=== PATIENT | female | born 1925 | race Caucasian/White ===

== ENCOUNTER 2017-01-20 19:40 | Emergency (ER) | payer MEDICARE, OTHER ==
[2017-01-20 20:35] LABS: BASOPHILS % 0.4 (0.0-1.5); EOSINOPHILS % 0.4 % (0.0-6.8); MEAN CORPUSCULAR HEMOGLOBIN 33.4 pg (28.0-34.0); MEAN CORPUSCULAR VOLUME 96.3 fl (80.0-100.0); MONOCYTES % 3.2 % (0.0-11.0); NEUTROPHILS # 4.8 # k/uL (1.4-7.7)
[2017-01-20 20:49] LABS: eGFR (African) > 60; eGFR (Non-African) > 60
--- NOTE | 2017-01-20 20:49 | ED Physician Documentation ---
Neuro Symptoms - HISTORIAN Historian: patient - HPI Stated Complaint: BLURRY VISION Chief Complaint: Neurological Deficits Onset: hours ([id number]) Last known Well Date: 01/20/17 Last Known Well Time: 15:00 Last known Well Code/Unknown Code: Known Further Comments: yes (89 year old female patient brought in by daughter with complaints of "double vision", "I can't see right". Patient reports symptoms started between [id number]. Patient had epidural injection at Dr Connell's office today between 1300 -1500. Family contacted Dr Connell who advised Er evaluation.) - CHARACTERS OF DEFICIT New Weakness: none Altered Sensation: none Vision Problems: Yes (loss of left peripheral vision) Impaired Speech/ Swallowing: No Decreased Ability: none Cognition is Usually: alert, oriented x3 Gait is Usually: walks w/o assistance Associated Symptoms: headache, other (pain behind her eyes) - ROS MENTAL STATUS: problems with vision CVS/Resp Upper Extremity Problem: none GI/ DYSPNEA: none MS/SKIN/LYMPH: none Neuro/Psych: none - PAST HX Past History: other (HLD, Fibromyalgia, polymyalgia rheumatica, OA, ) Other History: hypertension Allergies/Adverse Reactions: Allergies Allergy/AdvReac Type Severity Reaction Status Date / Time No Known Allergies Allergy Verified 01/20/17 20:17 Home Medications: Ambulatory Orders Medication Instructions Recorded Cyclobenzaprine HCl 10 mg D 07/28/14 Gabapentin [Gabapentin] 600 mg TID 07/28/14 Hydrocodone/Acetaminophen 1 each D 07/28/14 [Hydrocodon-Acetaminophen 5-500] Lisinopril [Lisinopril] 20 mg TID 07/28/14 Tramadol HCl [Tramadol HCl] 50 mg PRN PRN 07/28/14 DULoxetine HCL [Cymbalta] 30 mg D 01/20/17 Memantine HCl [Namenda] 10 mg D 01/20/17 Pramipexole Di-HCl [Mirapex] 0.125 mg D 01/20/17 - FAMILY HX Family History: denies: none - SOCIAL HX Smoking History: non-smoker - VITAL SIGNS Vital Signs: Vital Signs Temp Pulse Resp BP Pulse Ox 97.8 F 102 H 20 196/80 94 01/20/17 20:00 01/20/17 21:04 01/20/17 20:00 01/20/17 20:00 01/20/17 21:04 - REVIEWED ASSESSMENTS Nursing Assessment Reviewed: Yes Vitals Reviewed: Yes Progress - Progress Progress: Family updated on lab and CT, recommended stat consult with neurologist. 2054 Call to [facility], case discussed with powerhouse oiler, requested physician consult. Stroke vs giant cell arteritis. 2109 Call from [facility] at [facility], patient accepted by Dr Henderson. Will transfer for CTA, MRI tonight. No orders for solumedrol. ED Results Lab/Radiology - Lab Results Lab Results: Lab Results 01/20/17 01/20/17 01/20/17 20:29 20:29 20:29 WBC RBC Hgb Hct MCV MCH MCHC RDW Plt Count Neut % (Auto) Lymph % (Auto) Citrus % (Auto) Eos % (Auto) Baso % (Auto) Neut # (Auto) Lymph # (Auto) Citrus # (Auto) Eos # (Auto) Baso # (Auto) Reactive Lymphs % Reactive Lymphs # PT 11.1 Seconds Seconds (9.4-11.6) INR 1.06 (0.9-1.2) APTT 26.1 Seconds Seconds (24.5-32.8) Sodium 141 mmol/L mmol/L (136-145) Potassium 4.0 mmol/L mmol/L (3.5-5.0) Carbon Dioxide 28 mmol/L mmol/L (20-32) BUN 16 mg/dL mg/dL (10-26) Creatinine 0.8 mg/dL mg/dL (0.4-1.5) Estimated Creat Clear 54 Est GFR ( Amer) > 60 (60 - ) Est GFR (Non-Af Amer) > 60 (60 - ) Glucose 187 mg/dL H mg/dL (70-99) Calcium 10.3 mg/dL mg/dL (8.5-10.5) Total Bilirubin 0.4 mg/dL mg/dL (0.2-1.2) AST 25 U/L U/L (0-41) ALT 19 U/L U/L (0-45) Alkaline Phosphatase 72 U/L U/L (46-116) Troponin I < 0.03 ng/mL L ng/mL (0.03-0.06) Total Protein 7.7 g/dL g/dL (6.0-8.5) Albumin 4.8 g/dL g/dL (3.0-5.5) 01/20/17 20:29 WBC 5.60 K/ul K/ul (4.00-12.00) RBC 4.01 M/ul M/ul (3.90-5.20) Hgb 13.4 g/dL g/dL (12.0-16.0) Hct 38.6 % % (34.5-46.5) MCV 96.3 fl fl (80.0-100.0) MCH 33.4 pg pg (28.0-34.0) MCHC 34.7 g/dL g/dL (30.0-36.0) RDW 14.0 % % (11.3-14.3) Plt Count 145 K/mm3 K/mm3 (130-400) Neut % (Auto) 85.6 % H % (39.0-79.0) Lymph % (Auto) 8.8 % L % (16.0-50.0) Citrus % (Auto) 3.2 % % (0.0-11.0) Eos % (Auto) 0.4 % % (0.0-6.8) Baso % (Auto) 0.4 (0.0-1.5) Neut # (Auto) 4.8 # k/uL # k/uL (1.4-7.7) Lymph # (Auto) 0.5 # k/uL L # k/uL (0.6-4.0) Citrus # (Auto) 0.2 # k/uL # k/uL (0.0-0.9) Eos # (Auto) 0.0 # k/uL # k/uL (0.0-0.6) Baso # (Auto) 0.0 # k/uL # k/uL (0.0-0.5) Reactive Lymphs % 1.5 % % (0.0-5.0) Reactive Lymphs # 0.1 # k/uL # k/uL (0.0-0.8) PT INR APTT Sodium Potassium Carbon Dioxide BUN Creatinine Estimated Creat Clear Est GFR ( Amer) Est GFR (Non-Af Amer) Glucose Calcium Total Bilirubin AST ALT Alkaline Phosphatase Troponin I Total Protein Albumin - Radiology Radiology Impressions: Examination: CT head without contrast History: Loss of vision Comparison exam: 21 February 2014 Technique: Noncontrast head CT protocol. Findings: Ventricles and sulci are prominent, though consistent for patient age. Cerebrocerebellar parenchyma demonstrates periventricular low attenuation consistent with small vessel disease. No evidence for parenchymal hemorrhage. No evidence for mass or mass effect. No midline shift. No extra axial fluid collections. Partial visualization of the paranasal sinuses, mastoid air cells, orbits, skull and scalp without gross regularity. Impression: Advanced age related changes. No acute parenchymal process. No hemorrhage. Electronically signed on Jan 20, 2017 8:31:34 PM CDT by: Trevon Seth - Orders Orders: ED Orders Category Date Time Status Continuous EKG monitoring Q30M Care 01/20/17 20:04 Active Continuous Pulse Oximetry Q30M Care 01/20/17 20:[address] IV Lock 1T Care 01/20/17 20:[address] BRAIN W/O CONTRAST Stat Exams 01/20/17 Ordered CBC/PLATELET/DIFF Stat Lab 01/20/17 20:29 Completed CMP Stat Lab 01/20/17 20:29 Completed PT-INR Stat Lab 01/20/17 20:29 Completed PTT Stat Lab 01/20/17 20:29 Completed SEDIMENTATION RATE (ESR) Stat Lab 01/20/17 20:47 Received TROPONIN I (cTnI) Stat Lab 01/20/17 20:29 Completed UA W/MICRO IF INDICATED Stat Lab 01/20/17 20:04 Ordered 0.9 % Sodium Chloride [Normal Saline] 1,000 ml Med 01/20/17 21:16 Discontinued IV .STK-MED 0.9 % Sodium Chloride [Normal Saline] 1,000 ml Med 01/20/17 21:16 Ordered IV NOW Oxygen Daily Oxygen 01/20/17 20:15 Ordered Neuro Symptoms Physical Exam - Physical Exam General Appearance: mild distress HEENT: no apparent trauma, EOM's intact, unequal pupils (right irregular - history of eye surgery; left 2mm reactive), other (loss of left peripheral vision and left visual field at midline. ) Neuro/Psych: alert, oriented x3, no evidence of acute CVA, mood/affect nml, eyes open Cranial Nerves: nml as tested Pheripheral Exam: motor nml, sensation nml Neck: normal inspection, thyroid normal Respiratory: no resp distress, chest non-tender, breath sounds normal, other ( RA sat 88%, place on 3L NC) CVS: reg rate & rhythm, heart sounds normal, equal pulses, no murmur, no gallop , PMI nml, no JVD, no friction rub, 24 Abdomen: non-tender, no distention, no organomegaly Skin: no rash, pallor, nml palp., dry Extremities: non-tender, normal range of motion, no evidence of injury, no edema , J, [employer] Discharge Clincal Impression: Acute visual loss Qualifiers: Laterality: left Qualified Code(s): H53.132 - Sudden visual loss, left eye Referrals: Mila Wagner, PRN [Primary Care Provider] - 2 Days Home Medications: Ambulatory Orders Cyclobenzaprine HCl 10 mg D 07/28/14 Gabapentin [Gabapentin] 600 mg TID 07/28/14 Hydrocodone/Acetaminophen [Hydrocodon-Acetaminophen 5-500] 1 each D 07/28/14 Lisinopril [Lisinopril] 20 mg TID 07/28/14 Tramadol HCl [Tramadol HCl] 50 mg PRN PRN 07/28/14 DULoxetine HCL [Cymbalta] 30 mg D 01/20/17 Memantine HCl [Namenda] 10 mg D 01/20/17 Pramipexole Di-HCl [Mirapex] 0.125 mg D 01/20/17 Condition: Serious Disposition: 02 XFER SHT-TRM HOSP Decision to Admit: NO Decision Time: 21:23
[2017-01-20] MEDS ORDERED: 0.9 % SODIUM CHLORIDE 1,000 ML IV ONE (21:16)
[2017-01-20] MEDS: 0.9 % SODIUM CHLORIDE 1,000 ML IV ONE (21:28)
[2017-01-20 21:32] VITALS: BP 169/78
--- NOTE | 2017-01-21 05:55 | Diagnostic Imaging Report ---
YONI HARRIS (ELENA) - ER~ [facility] [id number] [facility] [address] [place] [address]. [id number] ~ ~ ~ ~ Report Submission Date: Jan 20, 2017 8:31:34 PM CDT Patient ~ Study Name: VERENICE SEGURA ~ Date: Jan 20, 2017 8:12:46 PM CDT ~ Modality Type: CT\SR Gender: F ~ Description: CT BRAIN W/O CONTRAST : [birth year] ~ Institution: [facility] Physician: YONI HARRIS) - ENIO ~ ~ ~ ~ Examination: CT head without contrast History:~ Loss of vision Comparison exam: 21 February 2014 Technique: Noncontrast head CT protocol. Findings: Ventricles and sulci are prominent, though consistent for patient age. Cerebrocerebellar parenchyma demonstrates periventricular low attenuation consistent with small vessel disease. No evidence for parenchymal hemorrhage. No evidence for mass or mass effect. No midline shift. No extra axial fluid collections. Partial visualization of the paranasal sinuses, mastoid air cells, orbits, skull and scalp without gross regularity. Impression: Advanced age related changes. No acute parenchymal process. No hemorrhage. ~ Electronically signed on Jan 20, 2017 8:31:34 PM CDT by: Trevon JEFFRIES
== END 2017-01-20 21:20 | disposition short-term general hospital (02) ==
LOC: ED 19:40
DX: H53.132 Sudden visual loss, left eye (principal)
CPT/HCPCS: 70450; 80053; 84484; 85025; 85610; 85651; 85730; 96360; 99284; J7030; S1016

== ENCOUNTER 2017-01-23 13:35 | Inpatient (IN) | payer MEDICARE, OTHER ==
[2017-01-23 16:28] VITALS: BMI 22.8
--- NOTE | 2017-01-23 18:23 | History and Physical Report ---
History of Present Illnes - History of Present Illness Reason for Visit: TIA History of Present Illness: Sirisha is an 89 year old female admitted from [facility] after having a sudden loss of vision in the right eye. She had had steroid injections in the lumbar spine on Thursday by Dr. Connell and on the way home, lost vision in her right eye. She came back to the hospital and was admitted on Thursday evening under the care of Dr. Connell. MRIs there did not demonstrate any evidence of a new stroke, and her vision has returned. She has some continued ataxia and is admitted to our facility for skilled stay with a view toward returning to her home after discharge. Her daughter Hilda is her primary caregiver and gives her close support. She usually sees Rachana Wagner for her care. - Past Medical History Cardiac: HTN. denies: CAD HAT IRONER: Peripheral neuropathy Musculoskeletal: Chronic low back pain, Osteoarthritis Rheumatologic: Fibromyalgia ENT: Allergic rhinitis - Past Surgical History Past Surgical History: Arthroscopy, Other (Carpel Tunnel surgery) - Past Social History Smoke: No Occupation: Retired Alcohol: None Drugs: None Lives: Alone (with close support from daughter Hilda) Domestic Violence: Negative - Health Maintenance Health Maintenance: Cholesterol Influenza Vaccine: Current for this Influenza Season Pneumonia Vaccine: Yes Resuscitation Status: Resusciation Status Resuscitation Status Do Not Resuscitate Review of Systems - Review of Systems Constitutional: negative: Fever, Chills Eyes: vision change ENT: negative: Ear Pain, Ear Discharge Respiratory: Shortness of Breath (improved). negative: Cough, Dry Cardiovascular: negative: Chest Pain Gastrointestinal: negative: Nausea, Vomiting Genitourinary: negative: Dysuria, Frequency Musculoskeletal: negative: Neck Pain, Shoulder Pain Skin: negative: Rash, Lesions Neurological: Weakness - Medications/Allergies Allergies/Adverse Reactions: Allergies Allergy/AdvReac Type Severity Reaction Status Date / Time No Known Allergies Allergy Verified 01/20/17 20:17 Home Medications: Home Medications Aspirin [Adult Low Dose Aspirin EC] 81 mg PO DAILY 01/23/17 Hydrochlorothiazide [Hydrochlorothiazide] 12.5 mg PO DAILY 01/23/17 Lisinopril [Zestril] 10 mg PO HS 01/23/17 Lovastatin [Mevacor] 10 mg PO HS 01/23/17 Exam - Exam Vital Signs: Vital Signs (72 hours) 01/20/17 01/23/17 21:20 13:57 Temperature 99.5 F Pulse Rate [ 114 H Right] Respiratory 20 Rate Blood Pressure 169/78 Blood Pressure 169/78 139/85 [Right Arm] O2 Sat by Pulse 94 Oximetry General: Alert, Oriented to Person, Oriented to Place, Oriented to Time HEENT: Atraumatic, PERRLA, EOMI Neck: No: Stridor, Rigidity Lungs: Clear to auscultation, Normal air movement, Wheezes (scant) Cardiovascular: Regular rate, Normal S1, Normal S2 Murmur: No: Systolic Murmur Abdomen: Normal bowel sounds, Soft, No tenderness, No hepatospenomegaly Genitourinary: No: Right Inguinal Hernia, Left Inguinal Hernia Male Genitourinary: No: Other Female Genitourinary: No: Other Integumentary: Normal, Ophiem, Warm Extremities: No clubbing, No cyanosis Neurological: Normal speech Psych/Mental Status: Mental status NL (mild cognitive slowing) Assessment/Plan - Assessment/Plan (1) Fibromyalgia Status: Acute Current Visit: Yes Assessment: Chronic (2) Ataxia Status: Acute Current Visit: Yes Assessment: Improved after TIA Plan: PT/OT (3) Hypertension Status: Acute Current Visit: Yes Qualifiers: Hypertension type: essential hypertension Qualified Code(s): I10 - Essential (primary) hypertension Assessment: Well controlled Plan: Continue HCTZ and lisinopril (4) Dementia Status: Acute Current Visit: Yes Assessment: Continue Memantine VTE Assessment - RISK FACTOR SCORE VTE RISK FACTOR SCORES: AGE OVER 60 YEARS, ANTICIPATED BED CONFINEMENT OR IMMOBILIZATION > 24 HOURS - RISK VTE MODERATE RISK: SCORE OF 2 (RISK PROXIMAL DVT 2-4%) PROPHYAXIS NEEDED ( Started Lovenox/TONY hose)
[2017-01-23] MEDS ORDERED: LORATADINE/PSEUDOEPHEDRINE 1 EACH TAB.ER.12H PO ONE (18:33)
[2017-01-23] MEDS: ENOXAPARIN SODIUM 30 MG/0.3 ML DISP.SYRIN SQ SCH (19:03)
[2017-01-23] MEDS: DULoxetine HCL 30 MG CAPSULE.DR PO SCH (20:15)
[2017-01-23] MEDS: SIMVASTATIN 20 MG TABLET PO SCH (20:16)
[2017-01-24] MEDS: MEMANTINE HCL 10 MG TABLET PO SCH (08:58)
[2017-01-24] MEDS: CYCLOBENZAPRINE HCL 5 MG TABLET PO SCH (08:58)
[2017-01-24] MEDS: GABAPENTIN 300 MG CAPSULE PO SCH ×3 (08:58→18:29)
[2017-01-24] MEDS ORDERED: HYDROCHLOROTHIAZIDE 25 MG TABLET PO SCH (09:00)
[2017-01-24] MEDS: LISINOPRIL 5 MG TABLET PO SCH (10:06)
[2017-01-24] MEDS: PRAMIPEXOLE 0.125 MG PO SCH (10:06)
[2017-01-24] MEDS ORDERED: traMADol HCL 50 MG TABLET PO PRN (12:30)
[2017-01-24] MEDS: HYDROcodone /APAP 5/325 1 EACH TABLET PO SCH ×2 (14:00→21:07)
[2017-01-24] MEDS: ENOXAPARIN SODIUM 30 MG/0.3 ML DISP.SYRIN SQ SCH (18:30)
[2017-01-24] MEDS: SIMVASTATIN 20 MG TABLET PO SCH (21:02)
[2017-01-24] MEDS: DULoxetine HCL 30 MG CAPSULE.DR PO SCH (21:03)
[2017-01-25] MEDS: HYDROcodone /APAP 5/325 1 EACH TABLET PO SCH ×3 (06:23→20:08)
[2017-01-25] MEDS: GABAPENTIN 300 MG CAPSULE PO SCH ×3 (09:11→18:27)
[2017-01-25] MEDS: CYCLOBENZAPRINE HCL 5 MG TABLET PO SCH (09:11)
[2017-01-25] MEDS: MEMANTINE HCL 10 MG TABLET PO SCH (09:11)
[2017-01-25] MEDS: LISINOPRIL 5 MG TABLET PO SCH (09:12)
[2017-01-25] MEDS: PRAMIPEXOLE 0.125 MG PO SCH (09:16)
[2017-01-25] MEDS: ENOXAPARIN SODIUM 30 MG/0.3 ML DISP.SYRIN SQ SCH (18:27)
[2017-01-25] MEDS: SIMVASTATIN 20 MG TABLET PO SCH (20:08)
[2017-01-25] MEDS: DULoxetine HCL 30 MG CAPSULE.DR PO SCH (20:08)
[2017-01-26] MEDS: HYDROcodone /APAP 5/325 1 EACH TABLET PO SCH ×3 (06:36→20:00)
--- NOTE | 2017-01-26 08:46 | Inpatient Progress Note ---
Subjective - Required Recertification Statement I anticipate X number of days because-include discharge plan: 5 - Review of Systems Events since last encounter: Sirisha is doing well. She is ready to work with therapy today. She is eating well. She denies any pain. She says that she feels well. Her visual deficits have not returned. The Kpad is helping with her back pain. General: Denies: Chills HEENT: Denies: Head Aches Pulmonary: Denies: Dyspnea Cardiovascular: Denies: Chest Pain Gastrointestinal: Denies: Nausea Genitourinary: Denies: Dysuria Musculoskeletal: Back Pain (improved with Kpad) Neurological: Weakness. Denies: Confusion Objective - Exam Vitals and I&O: Vital Signs Temp 98.6 F 01/25/17 20:13 Pulse 96 H 01/25/17 20:13 Resp 20 01/25/17 20:41 BP 122/54 01/25/17 20:13 Pulse Ox 92 01/25/17 20:13 Intake & Output 01/25/17 01/25/17 01/26/17 11:59 23:59 11:59 Intake Total 360 860 Balance 360 860 Weight 146 kg 66.224 kg Intake: Oral 360 860 Other: Voiding Method Toilet Toilet # Voids 2 3 1 General: Alert, Oriented to Person, Oriented to Place, Oriented to Time, Cooperative HEENT: Atraumatic, PERRLA, EOMI Neck: Supple, No JVD Lungs: Clear to auscultation, Normal air movement Cardiovascular: Regular rate Abdomen: Normal bowel sounds, Soft, No tenderness Extremities: No clubbing, No cyanosis, No edema Skin: Normal, Angus Neurological: Normal speech Psych/Mental Status: Mental status NL Assessment/Plan - Assessment/Plan (1) Fibromyalgia Status: Acute Current Visit: Yes Assessment: Chronic, stable Plan: Continue current pain medications (2) Ataxia Status: Acute Current Visit: Yes Assessment: PT/OT to work with today (3) Hypertension Status: Acute Current Visit: Yes Qualifiers: Hypertension type: essential hypertension Qualified Code(s): I10 - Essential (primary) hypertension Assessment: Well controlled (4) Dementia Status: Acute Current Visit: Yes Assessment: Chronic/stable
[2017-01-26] MEDS: CYCLOBENZAPRINE HCL 5 MG TABLET PO SCH (10:08)
[2017-01-26] MEDS: MEMANTINE HCL 10 MG TABLET PO SCH (10:08)
[2017-01-26] MEDS: GABAPENTIN 300 MG CAPSULE PO SCH ×3 (10:08→17:51)
[2017-01-26] MEDS: PRAMIPEXOLE 0.125 MG PO SCH (10:09)
[2017-01-26] MEDS: LISINOPRIL 20 MG TABLET PO SCH (10:12)
[2017-01-26 10:45] LABS: MEAN CORPUSCULAR HEMOGLOBIN 32.6 pg (28.0-34.0)
[2017-01-26 11:03] LABS: eGFR (African) > 60; eGFR (Non-African) > 60
[2017-01-26] MEDS: ENOXAPARIN SODIUM 30 MG/0.3 ML DISP.SYRIN SQ SCH (17:51)
[2017-01-26] MEDS: DULoxetine HCL 30 MG CAPSULE.DR PO SCH (19:59)
[2017-01-26] MEDS: SIMVASTATIN 20 MG TABLET PO SCH (19:59)
[2017-01-27] MEDS: HYDROcodone /APAP 5/325 1 EACH TABLET PO SCH ×3 (05:31→20:29)
[2017-01-27] MEDS: GABAPENTIN 300 MG CAPSULE PO SCH ×3 (08:40→18:05)
[2017-01-27] MEDS: CYCLOBENZAPRINE HCL 5 MG TABLET PO SCH (08:41)
[2017-01-27] MEDS: MEMANTINE HCL 10 MG TABLET PO SCH (08:41)
[2017-01-27] MEDS: PRAMIPEXOLE 0.125 MG PO SCH (08:41)
[2017-01-27] MEDS: LISINOPRIL 20 MG TABLET PO SCH (08:42)
[2017-01-27] MEDS: ENOXAPARIN SODIUM 30 MG/0.3 ML DISP.SYRIN SQ SCH (18:05)
[2017-01-27] MEDS: DULoxetine HCL 30 MG CAPSULE.DR PO SCH (20:29)
[2017-01-27] MEDS: SIMVASTATIN 20 MG TABLET PO SCH (20:29)
[2017-01-28] MEDS: HYDROcodone /APAP 5/325 1 EACH TABLET PO SCH ×3 (06:13→20:40)
[2017-01-28] MEDS: CYCLOBENZAPRINE HCL 5 MG TABLET PO SCH (08:32)
[2017-01-28] MEDS: MEMANTINE HCL 10 MG TABLET PO SCH (08:33)
[2017-01-28] MEDS: GABAPENTIN 300 MG CAPSULE PO SCH ×3 (08:33→18:25)
[2017-01-28] MEDS: PRAMIPEXOLE 0.125 MG PO SCH (08:36)
[2017-01-28] MEDS: LISINOPRIL 20 MG TABLET PO SCH (08:39)
[2017-01-28] MEDS: POLYETHYLENE GLYCOL 3350 17 GM POWD.PACK PO SCH (11:10)
[2017-01-28] MEDS: ENOXAPARIN SODIUM 30 MG/0.3 ML DISP.SYRIN SQ SCH (18:26)
[2017-01-28] MEDS: DULoxetine HCL 30 MG CAPSULE.DR PO SCH (20:37)
[2017-01-28] MEDS: SIMVASTATIN 20 MG TABLET PO SCH (20:38)
[2017-01-29] MEDS: HYDROcodone /APAP 5/325 1 EACH TABLET PO SCH ×3 (06:05→21:09)
[2017-01-29] MEDS: LISINOPRIL 20 MG TABLET PO SCH (10:20)
[2017-01-29] MEDS: GABAPENTIN 300 MG CAPSULE PO SCH ×3 (10:21→18:00)
[2017-01-29] MEDS: CYCLOBENZAPRINE HCL 5 MG TABLET PO SCH (10:22)
[2017-01-29] MEDS: MEMANTINE HCL 10 MG TABLET PO SCH (10:22)
[2017-01-29] MEDS: POLYETHYLENE GLYCOL 3350 17 GM POWD.PACK PO SCH (10:34)
[2017-01-29] MEDS: PRAMIPEXOLE 0.125 MG PO SCH (10:35)
[2017-01-29] MEDS ORDERED: FUROSEMIDE 40 MG/4 ML VIAL ONE (15:06)
[2017-01-29] MEDS ORDERED: SALINE FLUSH 10 ML DISP.SYRIN IVF ONE (15:07)
[2017-01-29] MEDS: ENOXAPARIN SODIUM 30 MG/0.3 ML DISP.SYRIN SQ SCH (18:04)
[2017-01-29] MEDS: DULoxetine HCL 30 MG CAPSULE.DR PO SCH (21:06)
[2017-01-29] MEDS: SIMVASTATIN 20 MG TABLET PO SCH (21:06)
[2017-01-30] MEDS: HYDROcodone /APAP 5/325 1 EACH TABLET PO SCH ×3 (06:26→19:59)
[2017-01-30] MEDS: MEMANTINE HCL 10 MG TABLET PO SCH (09:46)
[2017-01-30] MEDS: GABAPENTIN 300 MG CAPSULE PO SCH ×3 (09:46→18:11)
[2017-01-30] MEDS: LISINOPRIL 20 MG TABLET PO SCH (09:47)
[2017-01-30] MEDS: PRAMIPEXOLE 0.125 MG PO SCH (09:48)
[2017-01-30] MEDS: CYCLOBENZAPRINE HCL 5 MG TABLET PO SCH (09:51)
[2017-01-30] MEDS: POLYETHYLENE GLYCOL 3350 17 GM POWD.PACK PO SCH (10:40)
[2017-01-30] MEDS: ENOXAPARIN SODIUM 30 MG/0.3 ML DISP.SYRIN SQ SCH (18:11)
[2017-01-30] MEDS: SIMVASTATIN 20 MG TABLET PO SCH (19:58)
[2017-01-30] MEDS: DULoxetine HCL 30 MG CAPSULE.DR PO SCH (19:58)
[2017-01-31] MEDS: HYDROcodone /APAP 5/325 1 EACH TABLET PO SCH ×3 (06:11→21:22)
[2017-01-31] MEDS: CYCLOBENZAPRINE HCL 5 MG TABLET PO SCH (08:42)
[2017-01-31] MEDS: PRAMIPEXOLE 0.125 MG PO SCH (08:43)
[2017-01-31] MEDS: MEMANTINE HCL 10 MG TABLET PO SCH (08:43)
[2017-01-31] MEDS: GABAPENTIN 300 MG CAPSULE PO SCH ×3 (08:43→18:32)
[2017-01-31] MEDS: LISINOPRIL 20 MG TABLET PO SCH (08:45)
[2017-01-31] MEDS: POLYETHYLENE GLYCOL 3350 17 GM POWD.PACK PO SCH (12:34)
[2017-01-31] MEDS: LORATADINE/PSEUDOEPHEDRINE 1 EACH TAB.ER.12H PO PRN (13:25)
[2017-01-31] MEDS: ENOXAPARIN SODIUM 30 MG/0.3 ML DISP.SYRIN SQ SCH (18:33)
[2017-01-31] MEDS: DULoxetine HCL 30 MG CAPSULE.DR PO SCH (21:21)
[2017-01-31] MEDS: SIMVASTATIN 20 MG TABLET PO SCH (21:21)
[2017-02-01] MEDS: HYDROcodone /APAP 5/325 1 EACH TABLET PO SCH ×3 (06:33→20:40)
[2017-02-01] MEDS: MEMANTINE HCL 10 MG TABLET PO SCH (08:19)
[2017-02-01] MEDS: CYCLOBENZAPRINE HCL 5 MG TABLET PO SCH (08:19)
[2017-02-01] MEDS: GABAPENTIN 300 MG CAPSULE PO SCH ×3 (08:19→17:55)
[2017-02-01] MEDS: LISINOPRIL 20 MG TABLET PO SCH (08:21)
[2017-02-01] MEDS: PRAMIPEXOLE 0.125 MG PO SCH (08:24)
[2017-02-01] MEDS: POLYETHYLENE GLYCOL 3350 17 GM POWD.PACK PO SCH (11:55)
[2017-02-01] MEDS: ENOXAPARIN SODIUM 30 MG/0.3 ML DISP.SYRIN SQ SCH (20:39)
[2017-02-01] MEDS: DULoxetine HCL 30 MG CAPSULE.DR PO SCH (20:39)
[2017-02-01] MEDS: SIMVASTATIN 20 MG TABLET PO SCH (20:40)
--- NOTE | 2017-02-01 22:01 | Inpatient Progress Note ---
Subjective - Required Recertification Statement I anticipate X number of days because-include discharge plan: 3 - Review of Systems Events since last encounter: Sirisha continues to improved. She has not had any further loss of vision. I believe that the plan is for her to discharge to home on Thursday of this week. She is eating well and participating in therapy. General: Denies: Chills HEENT: Denies: Head Aches Pulmonary: Denies: Dyspnea Cardiovascular: Denies: Chest Pain Gastrointestinal: Denies: Nausea Genitourinary: Denies: Dysuria Musculoskeletal: Denies: Neck Pain Neurological: Denies: Weakness Objective - Exam Vitals and I&O: Vital Signs Temp 98.6 F 02/01/17 21:00 Pulse 91 H 02/01/17 21:00 Resp 16 02/01/17 21:00 BP 127/68 02/01/17 21:00 Pulse Ox 91 L 02/01/17 21:00 Intake & Output 01/31/17 02/01/17 02/01/17 23:59 11:59 23:59 Intake Total 780 600 840 Balance 780 600 840 Weight 67.132 kg Intake: Oral 780 600 840 Other: Voiding Method Toilet Toilet # Voids 2 2 2 General: Alert, Oriented to Person HEENT: Atraumatic Neck: Supple, No JVD Lungs: Clear to auscultation Cardiovascular: Regular rate Abdomen: Normal bowel sounds Extremities: No clubbing, No cyanosis, No edema Skin: Normal Neurological: Normal gait Psych/Mental Status: Mental status NL (baseline deficits in memory are noted) - Results Results: Laboratory Results WBC 11.91 K/ul (4.00-12.00) 01/26/17 10:25 RBC 4.10 M/ul (3.90-5.20) 01/26/17 10:25 Hgb 13.4 g/dL (12.0-16.0) 01/26/17 10:25 Hct 39.8 % (34.5-46.5) 01/26/17 10:25 MCV 97.0 fl (80.0-100.0) 01/26/17 10:25 MCH 32.6 pg (28.0-34.0) 01/26/17 10:25 MCHC 33.6 g/dL (30.0-36.0) 01/26/17 10:25 RDW 14.1 % (11.3-14.3) 01/26/17 10:25 Plt Count 276 K/mm3 (130-400) 01/26/17 10:25 Sodium 140 mmol/L (136-145) 01/26/17 10:25 Potassium 4.6 mmol/L (3.5-5.0) 01/26/17 10:25 Chloride 106 mmol/L (98-110) 01/26/17 10:25 Carbon Dioxide 30 mmol/L (20-32) 01/26/17 10:25 BUN 58 mg/dL (10-26) H 01/26/17 10:25 Creatinine 1.0 mg/dL (0.4-1.5) 01/26/17 10:25 Estimated Creat Clear 46 01/26/17 10:25 Est GFR ( Amer) > 60 (60-) 01/26/17 10:25 Est GFR (Non-Af Amer) > 60 (60-) 01/26/17 10:25 Glucose 134 mg/dL (70-99) H 01/26/17 10:25 Calcium 10.1 mg/dL (8.5-10.5) 01/26/17 10:25 Total Bilirubin 0.3 mg/dL (0.2-1.2) 01/26/17 10:25 AST 15 U/L (0-41) 01/26/17 10:25 ALT 15 U/L (0-45) 01/26/17 10:25 Alkaline Phosphatase 65 U/L (46-116) 01/26/17 10:25 Total Protein 7.6 g/dL (6.0-8.5) 01/26/17 10:25 Albumin 4.8 g/dL (3.0-5.5) 01/26/17 10:25 Assessment/Plan - Assessment/Plan (1) Fibromyalgia Status: Acute Current Visit: Yes Assessment: Chronic, stable (2) Ataxia Status: Acute Current Visit: Yes Assessment: Continue PT/OT (3) Hypertension Status: Acute Current Visit: Yes Qualifiers: Hypertension type: essential hypertension Qualified Code(s): I10 - Essential (primary) hypertension Assessment: Well controlled (4) Dementia Status: Acute Current Visit: Yes Qualifiers: Dementia type: unspecified type Dementia behavioral disturbance: without behavioral disturbance Qualified Code(s): F03.90 - Unspecified dementia without behavioral disturbance
[2017-02-02] MEDS: HYDROcodone /APAP 5/325 1 EACH TABLET PO SCH ×3 (06:05→20:13)
[2017-02-02] MEDS: LISINOPRIL 20 MG TABLET PO SCH (07:59)
[2017-02-02] MEDS: MEMANTINE HCL 10 MG TABLET PO SCH (07:59)
[2017-02-02] MEDS: GABAPENTIN 300 MG CAPSULE PO SCH ×3 (07:59→18:37)
[2017-02-02] MEDS: CYCLOBENZAPRINE HCL 5 MG TABLET PO SCH (07:59)
[2017-02-02] MEDS: PRAMIPEXOLE 0.125 MG PO SCH (08:00)
[2017-02-02] MEDS: LORATADINE/PSEUDOEPHEDRINE 1 EACH TAB.ER.12H PO PRN (08:04)
[2017-02-02] MEDS: POLYETHYLENE GLYCOL 3350 17 GM POWD.PACK PO SCH (12:31)
[2017-02-02] MEDS: ENOXAPARIN SODIUM 30 MG/0.3 ML DISP.SYRIN SQ SCH (18:37)
[2017-02-02] MEDS: DULoxetine HCL 30 MG CAPSULE.DR PO SCH (20:12)
[2017-02-02] MEDS: SIMVASTATIN 20 MG TABLET PO SCH (20:12)
[2017-02-03] MEDS: HYDROcodone /APAP 5/325 1 EACH TABLET PO SCH ×3 (06:17→20:00)
[2017-02-03] MEDS: GABAPENTIN 300 MG CAPSULE PO SCH ×3 (09:33→18:23)
[2017-02-03] MEDS: LISINOPRIL 20 MG TABLET PO SCH (09:34)
[2017-02-03] MEDS: CYCLOBENZAPRINE HCL 5 MG TABLET PO SCH (09:35)
[2017-02-03] MEDS: POLYETHYLENE GLYCOL 3350 17 GM POWD.PACK PO SCH (09:36)
[2017-02-03] MEDS: PRAMIPEXOLE 0.125 MG PO SCH (09:36)
[2017-02-03] MEDS: MEMANTINE HCL 10 MG TABLET PO SCH (09:36)
[2017-02-03] MEDS: ENOXAPARIN SODIUM 30 MG/0.3 ML DISP.SYRIN SQ SCH (18:24)
[2017-02-03] MEDS: SIMVASTATIN 20 MG TABLET PO SCH (20:00)
[2017-02-03] MEDS: DULoxetine HCL 30 MG CAPSULE.DR PO SCH (20:00)
[2017-02-03] MEDS ORDERED: CYCLOBENZAPRINE HCL 5 MG TABLET PO SCH (21:00)
[2017-02-04] MEDS: HYDROcodone /APAP 5/325 1 EACH TABLET PO SCH ×2 (05:54→14:20)
[2017-02-04] MEDS: MEMANTINE HCL 10 MG TABLET PO SCH (08:12)
[2017-02-04] MEDS: GABAPENTIN 300 MG CAPSULE PO SCH ×2 (08:13→13:07)
[2017-02-04] MEDS: LISINOPRIL 20 MG TABLET PO SCH (08:13)
[2017-02-04] MEDS: PRAMIPEXOLE 0.125 MG PO SCH (08:18)
[2017-02-04] MEDS: POLYETHYLENE GLYCOL 3350 17 GM POWD.PACK PO SCH (11:07)
[2017-02-04 16:30] VITALS: BP 130/71
== END 2017-02-04 16:25 | disposition home health service (06) | DRG 69 ==
LOC: SOUTH 13:35
PROVIDERS: ADMIT Family Medicine; ATTEND Family Medicine
DX: G45.9 Transient cerebral ischemic attack, unspecified (principal)
CPT/HCPCS: 36415; 80053; 85027; 97110; 97112; 97116; 97162; 97165; 97530; 97535; A9270; J1650; J1940

== ENCOUNTER 2017-03-03 15:16 | Inpatient (IN) | payer MEDICARE, OTHER ==
--- NOTE | 2017-03-03 15:34 | ED Physician Documentation ---
General Adult - HISTORIAN Historian: patient - HPI Chief Complaint: GI Bleed Onset: hours Timing: still present, better Further Comments: yes (atient developed some pain in the LLQ abd area 3 days ago , cramping in nature. [place] better yesterday until last evening. This AM on her way tot he bathroom she felt some blood run down her leg and had some bright red rectal bleeding. Has not had any further BM since that time. Has been having some lightheadedness, no chest pain or pressure. No previous problems. Does have some hemorrhoid and they have been bother her some. Last colonoscopy was about 5 years ago.) - ROS CONST: no problems. denies: fever, chills - PAST HX Past History: hypertension, other (arthritic pain) Surgeries/Procedures: other (cataracts) Immunizations: influenza, pneumovax (23 and 13) Allergies/Adverse Reactions: Allergies Allergy/AdvReac Type Severity Reaction Status Date / Time pregabalin [From Lyrica] Allergy Rash Verified 03/03/17 15:35 Home Medications: Ambulatory Orders Medication Instructions Recorded Cyclobenzaprine HCl 20 mg PO HS 07/28/14 Gabapentin [Gabapentin] 600 mg PO TID 07/28/14 Hydrocodone/Acetaminophen 1 each PO TID PRN 07/28/14 [Hydrocodon-Acetaminophen 5-500] Memantine HCl [Namenda] 10 mg PO BID 01/20/17 Pramipexole Di-HCl [Mirapex] 0.125 mg PO DAILY 01/20/17 Aspirin [Adult Low Dose Aspirin EC] 81 mg PO DAILY 01/23/17 Hydrochlorothiazide 12.5 mg PO DAILY 01/23/17 [Hydrochlorothiazide] Lisinopril [Zestril] 30 mg PO HS 01/23/17 DULoxetine HCL [Cymbalta] 30 mg PO DAILY 03/03/17 - SOCIAL HX Smoking History: non-smoker, secondhand Alcohol Use: none Drug Use: none - FAMILY HX Family History: Yes - VITAL SIGNS Vital Signs: Vital Signs Temp Pulse Resp BP Pulse Ox 137/61 02/04/17 08:12 - REVIEWED ASSESSMENTS Nursing Assessment Reviewed: Yes Vitals Reviewed: Yes General Adult Physical Exam - PHYSICAL EXAM GENERAL APPEARANCE: mild distress EENT: eye inspection normal, ENT inspection normal NECK: normal inspection, supple RESPIRATORY: no resp distress. No: wheezes, rales, rhonchi CVS: reg rate & rhythm, heart sounds normal, equal pulses, no murmur, no gallop ABDOMEN: soft, no organomegaly, normal bowel sounds, no abdominal bruit, no distension RECTAL: normal exam, normal rectal tone, heme positive stool, hemorrhoids BACK: normal inspection, no CVA tenderness SKIN: warm/dry, normal color NEURO: oriented X3, CN's nml as tested, motor nml, sensation nml Discharge Clincal Impression: Hemorrhoid Qualifiers: Hemorrhoid type: second degree Qualified Code(s): K64.1 - Second degree hemorrhoids Home Medications: Ambulatory Orders Cyclobenzaprine HCl 20 mg PO HS 07/28/14 Gabapentin [Gabapentin] 600 mg PO TID 07/28/14 Hydrocodone/Acetaminophen [Hydrocodon-Acetaminophen 5-500] 1 each PO TID PRN 09/10 Memantine HCl [Namenda] 10 mg PO BID 01/20/17 Pramipexole Di-HCl [Mirapex] 0.125 mg PO DAILY 01/20/17 Aspirin [Adult Low Dose Aspirin EC] 81 mg PO DAILY 01/23/17 Hydrochlorothiazide [Hydrochlorothiazide] 12.5 mg PO DAILY 01/23/17 Lisinopril [Zestril] 30 mg PO HS 01/23/17 DULoxetine HCL [Cymbalta] 30 mg PO DAILY 03/03/17 Condition: Good Disposition: 06 HOME HEALTH SERVICE Decision to Admit: NO Date of Decison to Admit: 03/06/17 Decision Time: 12:40
[2017-03-03 16:03] LABS: BASOPHILS % 0.3 (0.0-1.5); EOSINOPHILS % 0.5 % (0.0-6.8); MEAN CORPUSCULAR HEMOGLOBIN 33.6 pg (28.0-34.0); MEAN CORPUSCULAR VOLUME 97.5 fl (80.0-100.0); MONOCYTES % 3.4 % (0.0-11.0); NEUTROPHILS # 18.2 # k/uL (1.4-7.7)
[2017-03-03 16:11] LABS: APPEARANCE,URINE Clear (CLEAR); COLOR,URINE Yellow (YELLOW); OCCULT BLOOD,URINE Negative (NEGATIVE); UROBILINOGEN URINE 0.2 Eu (0.2-1.0)
[2017-03-03 16:13] LABS: eGFR (African) > 60; eGFR (Non-African) > 60
--- NOTE | 2017-03-03 17:03 | Diagnostic Imaging Report ---
[facility] [address] [facility] [address] Report Submission Date: Mar 03, 2017 4:40:45 PM CDT Patient Study Name: VERENICE SEGURA Date: Mar 03, 2017 4:04:34 PM CDT Modality Type: CR Gender: F Description: ABDOMEN : [birth year] Institution: [facility] Physician: SANJANA SANTIAGO - ENIO Abdominal series with chest History: Left lower quadrant pain and diarrhea Findings: An ill defined nodular opacity is present at the left lateral lung base. The remainder of each lung is clear. Heart size is normal. Upright and supine abdominal radiographs reveal a nonobstructive bowel gas pattern without free air or significant constipation. Lumbar spondylosis and vascular calcifications are present. Impression: 1. Indeterminate opacity at left lateral lung base. Recommend nonemergent noncontrast chest CT followup if no old films are available for comparison. 2. Nonobstructive bowel gas pattern. Electronically signed on Mar 03, 2017 4:40:45 PM CDT by: Td JEFFRIES
[2017-03-03] MEDS ORDERED: ACETAMINOPHEN 500 MG TABLET PO PRN (17:33)
--- NOTE | 2017-03-03 18:05 | Diagnostic Imaging Report ---
[facility] [address] [facility] [address] [place], [place]. [address] Report Submission Date: Mar 03, 2017 5:59:00 PM CDT Patient Study Name: VERENICE SEGURA Date: Mar 03, 2017 5:38:58 PM CDT Modality Type: CT\SR Gender: F Description: CT ABD & PELVIS W/ CON : [birth year] Institution: [facility] Physician: SANJANA SANTIAGO CT abdomen and pelvis with contrast Date of study: March 03, 2017 CLINICAL HISTORY: GI BLEED (Hx) / GI BLEED (DICOM Hx) TECHNIQUE: 5 mm contiguous axial images of the abdomen and pelvis with IV contrast. With ; 90 CC OMNIPAQUE FINDINGS: No liver spleen lesion is seen. There is minimal infiltrate in the left lung base. There is no adrenal or pancreas mass. Multiple gallstones are present. Mesenteric artery aortic and iliac vascular calcification is present. There is a simple left renal cyst. Changes of colitis are present in the splenic flexure and descending colon. There is lumbar spondylosis. No retroperitoneal mass or aneurysm is seen. The urinary bladder is distended. A right renal cyst is also present. And umbilical hernia contains only fat. A punctate a right renal calculus is present. IMPRESSION: Left COLON Colitis from splenic flexure the sigmoid colon Extensive vascular calcification. Lumbar spondylosis Minimal left lower lobe infiltrate Renal cysts Cholelithiasis Electronically signed on Mar 03, 2017 5:59:00 PM CDT by: Eladio JEFFRIES
[2017-03-03] MEDS ORDERED: CIPROFLOXACIN/D5W 400 MG in PREMIX BAG 1 BAG IV ONE (18:17)
[2017-03-03] MEDS ORDERED: CIPROFLOXACIN/D5W 200 ML IV ONE (18:19)
[2017-03-03] MEDS: 0.9 % SODIUM CHLORIDE 1,000 ML IV SCH (18:27)
[2017-03-03] MEDS ORDERED: SALINE FLUSH 10 ML DISP.SYRIN IVF ONE (19:36)
[2017-03-03] MEDS ORDERED: metroNIDAZOLE/SODIUM CHLORIDE 100 ML IV ONE (20:08)
[2017-03-03] MEDS: GABAPENTIN 300 MG CAPSULE PO SCH (20:10)
[2017-03-03] MEDS: MEMANTINE HCL 10 MG TABLET PO SCH (20:10)
[2017-03-03] MEDS: metroNIDAZOLE/SODIUM CHLORIDE 500 MG in PREMIX BAG 1 BAG IV SCH (20:11)
[2017-03-03 20:52] VITALS: BMI 24.3
[2017-03-03] MEDS ORDERED: CIPROFLOXACIN/D5W 400 MG in PREMIX BAG 1 BAG IV SCH (21:00)
[2017-03-03 22:54] LABS: BASOPHILS % 0.4 (0.0-1.5); EOSINOPHILS % 0.8 % (0.0-6.8); MEAN CORPUSCULAR HEMOGLOBIN 31.7 pg (28.0-34.0); MEAN CORPUSCULAR VOLUME 97.8 fl (80.0-100.0); MONOCYTES % 4.9 % (0.0-11.0)
[2017-03-04] MEDS ORDERED: LISINOPRIL 5 MG TABLET ONE (03:56)
[2017-03-04] MEDS: 0.9 % SODIUM CHLORIDE 1,000 ML IV SCH ×3 (06:15→20:16)
[2017-03-04 06:41] LABS: BASOPHILS % 0.3 (0.0-1.5); EOSINOPHILS % 1.3 % (0.0-6.8); MEAN CORPUSCULAR HEMOGLOBIN 32.7 pg (28.0-34.0); MONOCYTES % 4.3 % (0.0-11.0); NEUTROPHILS # 10.4 # k/uL (1.4-7.7)
[2017-03-04 07:13] LABS: eGFR (African) > 60; eGFR (Non-African) > 60
--- NOTE | 2017-03-04 08:23 | History and Physical Report ---
History of Present Illnes - History of Present Illness Reason for Visit: GI bleed History of Present Illness: Sirisha noticed some rectal bleeding this morning. It started suddenly while she was standing up and she felt it on her leg. She also has some crampy abdominal pain and some shortness of breat/lightheadedness. She denies chest pain. She knows that she has some hemorrhoids. She denies N/V. - Past Medical History Cardiac: HTN. denies: CAD RECRUITING AND SELECTION CONSULTANT: Peripheral neuropathy Musculoskeletal: Chronic low back pain, Osteoarthritis Rheumatologic: Fibromyalgia ENT: Allergic rhinitis - Past Surgical History Past Surgical History: Arthroscopy, Other (Carpel Tunnel surgery) - Past Family History Mother Family History: Cancer (Ovarian) Father Family History: Cancer (Prostate) - Past Social History Smoke: No Occupation: Retired Alcohol: None Drugs: None Lives: Alone (with close support from daughter Hilda) Domestic Violence: Negative - Health Maintenance Health Maintenance: Cholesterol Pneumonia Vaccine: No Resuscitation Status: Resusciation Status Resuscitation Status Full Code Review of Systems - Review of Systems Constitutional: negative: Fever, Chills Eyes: negative: pain, vision change ENT: negative: Ear Pain, Ear Discharge Respiratory: Shortness of Breath (mild). negative: Cough, Wheezing Cardiovascular: Light Headedness. negative: Chest Pain, Palpitations Gastrointestinal: Abdominal Pain, Hematochezia. negative: Nausea, Vomiting, Diarrhea, Constipation Genitourinary: negative: Dysuria, Frequency Musculoskeletal: negative: Neck Pain, Back Pain Skin: negative: Rash, Lesions Neurological: negative: Numbness, Change in Speech, Confusion - Medications/Allergies Allergies/Adverse Reactions: Allergies Allergy/AdvReac Type Severity Reaction Status Date / Time pregabalin [From Lyrica] Allergy Rash Verified 03/03/17 15:35 Home Medications: Home Medications DULoxetine HCL [Cymbalta] 30 mg PO DAILY 03/03/17 Current Inpatient Medications: Current Inpatient Medications Acetaminophen (Tylenol Extra Strength) 500 mg PO Q4 PRN PRN Reason: PAIN Cyclobenzaprine HCl (Flexeril) 20 mg PO HS [facility] Duloxetine HCl (Cymbalta) 30 mg PO DAILY [facility] Gabapentin (Neurontin) 600 mg PO TID [facility] Last Admin: 03/03/17 20:10 Dose: 600 mg Hydrochlorothiazide (Hydrodiuril) 12.5 mg PO DAILY [facility] Sodium Chloride (Normal Saline) 1,000 mls @ 100 mls/hr IV Q10H [facility] Last Admin: 03/04/17 07:33 Dose: 100 mls/hr Ciprofloxacin/Dextrose 400 mg/ (PREMIX BAG) 200 mls @ 200 mls/hr IV NOW ONE Stop: 03/03/17 19:16 Last Admin: 03/03/17 18:27 Dose: 200 mls/hr Metronidazole/Sodium Chloride (500 mg/ PREMIX BAG) 100 mls @ 100 mls/hr IV BID [facility] Last Admin: 03/03/17 20:11 Dose: 100 mls/hr Ciprofloxacin/Dextrose 400 mg/ (PREMIX BAG) 200 mls @ 200 mls/hr IV BID [facility] Lisinopril (Prinivil) 10 mg PO DAILY [facility] Memantine (Namenda) 5 mg PO HS [facility] Last Admin: 03/03/17 20:10 Dose: 5 mg Miscellaneous (Non Form) 1 each PO DAILY [facility] Exam - Exam Vital Signs: Vital Signs (72 hours) 03/03/17 03/03/17 03/03/17 17:24 18:00 18:48 Temperature 98.2 F 98.3 F 98.3 F Pulse Rate [ 99 H 99 H 99 H Pulse ox] Respiratory 18 18 18 Rate Blood Pressure 114/61 114/61 [Left Arm] Blood Pressure 112/64 [Right Arm] O2 Sat by Pulse 93 93 93 Oximetry 03/03/17 03/03/17 03/04/17 21:24 21:44 02:00 Temperature 98.2 F 99.5 F 97.7 F Pulse Rate [ 104 H 107 H 104 H Pulse ox] Respiratory 18 20 20 Rate Blood Pressure 122/54 112/67 [Left Arm] Blood Pressure 112/64 [Right Arm] O2 Sat by Pulse 93 93 94 Oximetry 03/04/17 06:00 Temperature 98.2 F Pulse Rate [ 104 H Pulse ox] Respiratory 18 Rate Blood Pressure 147/70 [Left Arm] Blood Pressure [Right Arm] O2 Sat by Pulse 92 Oximetry General: Alert, Oriented to Person, Oriented to Place, Oriented to Time, Cooperative, No acute distress HEENT: Atraumatic, PERRLA, EOMI Neck: Normal Range of Motion. No: Rigidity Lungs: Clear to auscultation, Normal air movement, Speaks full Sentences. No: Respiratory Distress Cardiovascular: Normal S1, Normal S2, Tachycardia (slight) Murmur: No: Systolic Murmur, Diastolic Murmur, Rub Abdomen: Soft. No: No tenderness, No masses, Distended, Rigid Integumentary: Normal, [place], Warm, Dry Extremities: No clubbing, No cyanosis Neurological: Normal speech, Cranial nerves 3-12 NL Psych/Mental Status: Mental status NL, Mood NL - Laboratory Results Laboratory Results: Laboratory Results 03/03/17 03/03/17 03/03/17 17:03 17:30 22:51 WBC 16.60 H RBC 3.55 L Hgb 11.2 L Hct 34.7 MCV 97.8 MCH 31.7 MCHC 32.4 RDW 14.5 H Plt Count 128 L Neut % (Auto) 78.0 Lymph % (Auto) 14.5 L [place] % (Auto) 4.9 Eos % (Auto) 0.8 Baso % (Auto) 0.4 Neut # (Auto) 13.0 H Lymph # (Auto) 2.4 [place] # (Auto) 0.8 Eos # (Auto) 0.1 Baso # (Auto) 0.1 Reactive Lymphs % 1.4 Reactive Lymphs # 0.2 PT 10.5 INR 1.00 Sodium Potassium Chloride Carbon Dioxide BUN Creatinine Estimated Creat Clear Est GFR ( Amer) Est GFR (Non-Af Amer) Glucose Calcium Stool Occult Blood Positive H 03/04/17 03/04/17 06:10 06:10 WBC 12.86 H RBC 3.41 L Hgb 11.1 L Hct 33.4 L MCV 98.0 MCH 32.7 MCHC 33.3 RDW 14.3 Plt Count 126 L Neut % (Auto) 80.6 H Lymph % (Auto) 12.2 L [place] % (Auto) 4.3 Eos % (Auto) 1.3 Baso % (Auto) 0.3 Neut # (Auto) 10.4 H Lymph # (Auto) 1.6 [place] # (Auto) 0.6 Eos # (Auto) 0.2 Baso # (Auto) 0.0 Reactive Lymphs % 1.3 Reactive Lymphs # 0.2 PT INR Sodium 139 Potassium 3.8 Chloride 107 Carbon Dioxide 25 BUN 10 Creatinine 0.5 Estimated Creat Clear 99 Est GFR ( Amer) > 60 Est GFR (Non-Af Amer) > 60 Glucose 136 H Calcium 9.3 Stool Occult Blood - Interpretation/Data Interpretation/Data: CT Abd/Pelvis indicates left colon colitis Assessment/Plan - Assessment/Plan (1) Colitis Status: Acute Current Visit: Yes Assessment: CT scan indicates left colon colitis with WBC count 21 and H/H 12.3/35.6 Plan: Pt started on Cipro, Metronidazole, and fluids and admitted to inpatient floor. (2) GI bleed Status: Acute Current Visit: Yes Assessment: GI bleed secondary to colitis. Will monitor clinically and recheck labs. Pt stable and not anemic. VTE Assessment - RISK FACTOR SCORE VTE RISK FACTOR SCORES: AGE OVER 60 YEARS, ACUTE INFECTION OTHER THEN SEPSIS - RISK VTE MODERATE RISK: SCORE OF 2 (RISK PROXIMAL DVT 2-4%) PROPHYAXIS NEEDED
[2017-03-04] MEDS: DULoxetine HCL 30 MG CAPSULE.DR PO SCH (08:59)
[2017-03-04] MEDS: HYDROCHLOROTHIAZIDE 25 MG TABLET PO SCH (08:59)
[2017-03-04] MEDS ORDERED: LISINOPRIL 5 MG TABLET PO SCH (09:00)
[2017-03-04] MEDS: GABAPENTIN 300 MG CAPSULE PO SCH ×3 (09:00→17:49)
[2017-03-04] MEDS: LISINOPRIL 5 MG TABLET PO SCH (09:01)
[2017-03-04] MEDS: CIPROFLOXACIN/D5W 400 MG in PREMIX BAG 1 BAG IV SCH ×2 (09:23→20:22)
[2017-03-04] MEDS: Non-Formulary 1 EACH PO SCH ×2 (10:26→10:40)
[2017-03-04] MEDS: metroNIDAZOLE/SODIUM CHLORIDE 500 MG in PREMIX BAG 1 BAG IV SCH (11:12)
[2017-03-04] MEDS ORDERED: SALINE FLUSH 10 ML DISP.SYRIN IVF ONE ×2 (12:32→12:34)
[2017-03-04] MEDS: metroNIDAZOLE 500 MG TABLET PO SCH ×2 (17:43→23:30)
[2017-03-04] MEDS: CYCLOBENZAPRINE HCL 5 MG TABLET PO SCH (20:18)
[2017-03-04] MEDS: MEMANTINE HCL 10 MG TABLET PO SCH (20:19)
[2017-03-04] MEDS: HYDROcodone /APAP 5/325 1 EACH TABLET PO PRN (20:21)
[2017-03-04] MEDS ORDERED: CIPROFLOXACIN/D5W 200 ML IV ONE (20:21)
[2017-03-05] MEDS: 0.9 % SODIUM CHLORIDE 1,000 ML IV SCH ×2 (05:09→17:54)
[2017-03-05] MEDS: metroNIDAZOLE 500 MG TABLET PO SCH ×2 (05:20→10:58)
[2017-03-05] MEDS ORDERED: CIPROFLOXACIN/D5W 200 ML IV ONE ×2 (08:36→20:10)
[2017-03-05] MEDS: CIPROFLOXACIN/D5W 400 MG in PREMIX BAG 1 BAG IV SCH ×2 (08:38→20:19)
[2017-03-05] MEDS: HYDROCHLOROTHIAZIDE 25 MG TABLET PO SCH (08:39)
[2017-03-05] MEDS: DULoxetine HCL 30 MG CAPSULE.DR PO SCH (08:39)
[2017-03-05] MEDS: GABAPENTIN 300 MG CAPSULE PO SCH ×3 (08:40→17:54)
[2017-03-05] MEDS: Non-Formulary 1 EACH PO SCH (08:41)
[2017-03-05] MEDS: LISINOPRIL 5 MG TABLET PO SCH (08:41)
--- NOTE | 2017-03-05 10:37 | Inpatient Progress Note ---
Subjective - Required Recertification Statement I anticipate X number of days because-include discharge plan: 1 - Review of Systems Events since last encounter: Sirisha says that her abdominal pain is slowly improving. She still has pain in her left lower abdomen. She is not having any further bouts of francesca bleeding. General: Malaise. Denies: Chills, Night Sweats HEENT: Denies: Head Aches Pulmonary: Denies: Dyspnea, Cough Cardiovascular: Denies: Chest Pain Gastrointestinal: Nausea, Abdominal Pain (left lower quadrant), Diarrhea ( improved and with no visible blood). Denies: Vomiting Genitourinary: Denies: Dysuria Musculoskeletal: Denies: Neck Pain Neurological: Weakness. Denies: Incoordination, Change in Speech Objective - Exam Vitals and I&O: Vital Signs Temp 98.6 F 03/05/17 09:46 Pulse 98 H 03/05/17 09:46 Resp 16 03/05/17 09:46 BP 137/65 03/05/17 09:46 Pulse Ox 94 03/05/17 09:46 Intake & Output 03/04/17 03/04/17 03/05/17 11:59 23:59 11:59 Intake Total 935 268 3329 Output Total 600 1125 Balance -240 -165 3300 Weight 70.307 kg Intake: IV 2700 Right Forearm 2700 Oral 360 960 600 Output: Urine 600 1125 Other: Voiding Method Toilet Toilet # Voids 3 2 General: Alert, Oriented to Person, Oriented to Place, Other (Overweight) HEENT: Atraumatic, PERRLA, EOMI Neck: Supple, No JVD Lungs: Clear to auscultation, Normal air movement Cardiovascular: Regular rate Abdomen: Normal bowel sounds, Other (Tender in the left lower quadrant. This is decreased since yesterday's exam) Skin: Normal, [place] Neurological: Normal gait Psych/Mental Status: Mental status NL - Results Results: Laboratory Results WBC 12.90 K/ul (4.00-12.00) H 03/04/17 06:10 RBC 3.41 M/ul (3.90-5.20) L 03/04/17 06:10 Hgb 11.1 g/dL (12.0-16.0) L 03/04/17 06:10 Hct 33.4 % (34.5-46.5) L 03/04/17 06:10 MCV 98.0 fl (80.0-100.0) 03/04/17 06:10 MCH 32.7 pg (28.0-34.0) 03/04/17 06:10 MCHC 33.3 g/dL (30.0-36.0) 03/04/17 06:10 RDW 14.3 % (11.3-14.3) 03/04/17 06:10 Plt Count 126 K/mm3 (130-400) L 03/04/17 06:10 Neut % (Auto) 80.6 % (39.0-79.0) H 03/04/17 06:10 Lymph % (Auto) 12.2 % (16.0-50.0) L 03/04/17 06:10 [place] % (Auto) 4.3 % (0.0-11.0) 03/04/17 06:10 Eos % (Auto) 1.3 % (0.0-6.8) 03/04/17 06:10 Baso % (Auto) 0.3 (0.0-1.5) 03/04/17 06:10 Neut # (Auto) 10.4 # k/uL (1.4-7.7) H 03/04/17 06:10 Lymph # (Auto) 1.6 # k/uL (0.6-4.0) 03/04/17 06:10 [place] # (Auto) 0.6 # k/uL (0.0-0.9) 03/04/17 06:10 Eos # (Auto) 0.2 # k/uL (0.0-0.6) 03/04/17 06:10 Baso # (Auto) 0.0 # k/uL (0.0-0.5) 03/04/17 06:10 Reactive Lymphs % 1.3 % (0.0-5.0) 03/04/17 06:10 Reactive Lymphs # 0.2 # k/uL (0.0-0.8) 03/04/17 06:10 PT 10.5 Seconds (9.4-11.6) 03/03/17 17:30 INR 1.00 (0.9-1.2) 03/03/17 17:30 Sodium 139 mmol/L (136-145) 03/04/17 06:10 Potassium 3.8 mmol/L (3.5-5.0) 03/04/17 06:10 Chloride 107 mmol/L (98-110) 03/04/17 06:10 Carbon Dioxide 25 mmol/L (20-32) 03/04/17 06:10 BUN 10 mg/dL (10-26) 03/04/17 06:10 Creatinine 0.5 mg/dL (0.4-1.5) 03/04/17 06:10 Estimated Creat Clear 99 03/04/17 06:10 Est GFR ( Amer) > 60 (60-) 03/04/17 06:10 Est GFR (Non-Af Amer) > 60 (60-) 03/04/17 06:10 Glucose 136 mg/dL (70-99) H 03/04/17 06:10 Calcium 9.3 mg/dL (8.5-10.5) 03/04/17 06:10 Total Bilirubin 0.6 mg/dL (0.2-1.2) 03/03/17 15:44 AST 20 U/L (0-41) 03/03/17 15:44 ALT 20 U/L (0-45) 03/03/17 15:44 Alkaline Phosphatase 65 U/L (46-116) 03/03/17 15:44 Total Protein 6.2 g/dL (6.0-8.5) 03/03/17 15:44 Albumin 4.1 g/dL (3.0-5.5) 03/03/17 15:44 Urine Color Yellow (YELLOW) 03/03/17 16:05 Urine Appearance Clear (CLEAR) 03/03/17 16:05 Urine pH 6.0 (5.0 - 8.0) 03/03/17 16:05 Ur Specific [place] 1.010 (1.010-1.030) 03/03/17 16:05 Urine Protein Trace mg/dL (NEGATIVE) 03/03/17 16:05 Urine Ketones Negative mg/dL (NEGATIVE) 03/03/17 16:05 Urine Occult Blood Negative (NEGATIVE) 03/03/17 16:05 Urine Nitrite Negative (NEGATIVE) 03/03/17 16:05 Urine Bilirubin Negative (NEGATIVE) 03/03/17 16:05 Urine Urobilinogen 0.2 Eu (0.2-1.0) 03/03/17 16:05 Ur Leukocyte Esterase 1+ (NEGATIVE) H 03/03/17 16:05 Urine Glucose Negative mg/dL (NEGATIVE) 03/03/17 16:05 Stool Occult Blood Positive (NEGATIVE) H 03/03/17 17:03 Assessment/Plan - Assessment/Plan (1) GI bleed Status: Acute Current Visit: Yes Qualifiers: GI bleed type/associated pathology: unspecified gastrointestinal hemorrhage type Qualified Code(s): K92.2 - Gastrointestinal hemorrhage, unspecified Assessment: Due to colitis (2) Colitis Status: Acute Current Visit: Yes Assessment: Continue current antibiotic therapy Check CBC in am, hope for discharge to home
[2017-03-05] MEDS: HYDROcodone /APAP 5/325 1 EACH TABLET PO PRN (14:09)
[2017-03-05] MEDS: CYCLOBENZAPRINE HCL 5 MG TABLET PO SCH (20:20)
[2017-03-05] MEDS: MEMANTINE HCL 10 MG TABLET PO SCH (20:20)
[2017-03-06] MEDS: 0.9 % SODIUM CHLORIDE 1,000 ML IV SCH ×2 (04:40→07:17)
[2017-03-06] MEDS: GABAPENTIN 300 MG CAPSULE PO SCH (08:30)
[2017-03-06] MEDS: HYDROcodone /APAP 5/325 1 EACH TABLET PO PRN (08:30)
[2017-03-06] MEDS: HYDROCHLOROTHIAZIDE 25 MG TABLET PO SCH (08:30)
[2017-03-06] MEDS: Non-Formulary 1 EACH PO SCH (08:31)
[2017-03-06] MEDS: DULoxetine HCL 30 MG CAPSULE.DR PO SCH (08:31)
[2017-03-06] MEDS: LISINOPRIL 5 MG TABLET PO SCH (08:32)
[2017-03-06] MEDS ORDERED: CIPROFLOXACIN/D5W 200 ML IV ONE (08:33)
[2017-03-06] MEDS: CIPROFLOXACIN/D5W 400 MG in PREMIX BAG 1 BAG IV SCH (08:34)
--- NOTE | 2017-03-06 09:43 | Discharge Summary ---
DATE OF ADMISSION: March 04, 2017 DATE OF DISCHARGE: March 06, 2017 DIAGNOSES ON THIS HOSPITALIZATION: 1. Colitis. 2. GI bleed. SUMMARIZATION OF ADMISSION HISTORY AND PHYSICAL: This is an 89-year-old female who presented with abdominal pain in the left lower quadrant, as well as some bleeding. Her CT scan done in the emergency room was consistent with colitis. HOSPITAL COURSE: She was admitted. She was placed on IV Cipro and Flagyl. She had fairly rapid improvement. Her left-sided abdominal pain resolved fairly quickly. She had no further bloody diarrhea in the hospital. We did check her hemoglobin. Her hemoglobin did not drop significantly. She was discharged with a hemoglobin of 11.1. She will continue all of her home medications on discharge with the addition of Cipro 500 mg p.o. b.i.d. for 7 days and Flagyl 500 mg p.o. b.i.d. for 7 days. Prescriptions are written for both of these medications. CONDITION ON DISCHARGE: She is discharged to home in improved condition. DISCHARGE INSTRUCTIONS: She is to follow up with Rachana Wagner next week. cc: Rachana JEFFRIES
[2017-03-06 11:19] VITALS: BP 113/71
== END 2017-03-06 12:40 | disposition home or self-care (01) | DRG 392 ==
LOC: ED 15:16 → SOUTH 16:54
PROVIDERS: ADMIT Physician Assistant; ATTEND Family Medicine
DX: K52.9 Noninfective gastroenteritis and colitis, unspecified (principal); K92.2 Gastrointestinal hemorrhage, unspecified
CPT/HCPCS: 36415; 74022; 74177; 80048; 80053; 81002; 82272; 85025; 85610; 87086; A9270; J0744; J3490; J7030; Q9966; 99222; 99232; 99238; 99284; S1016

== ENCOUNTER 2017-03-23 08:40 | Outpatient (CLI) | payer MEDICARE, OTHER ==
--- NOTE | 2017-03-23 17:28 | Diagnostic Imaging Report ---
ZAK KHALIL (ELENA) - OP~ [facility] [address] [address] ~ ~ ~ ~ Report Submission Date: Mar 23, 2017 4:01:20 PM CDT Patient ~ Study Name: VERENICE SEGURA ~ Date: Mar 23, 2017 9:45:54 AM CDT ~ Modality Type: CT\SR Gender: F ~ Description: CT CHEST W/ CONTRAST : [birth year] ~ Institution: [facility] Physician: ZAK KHALIL) - OP ~ ~ ~ ~ Examination: CT chest History: Chest nodule Comparison exams: 03 March 2017 Technique: CT chest with contrast protocol~~ Findings: Scattered apical and posterior parenchymal scarring. ~At the cardiac apex is a region of pleural thickening. No spiculated lesion. Few scattered subcentimeter nodules identified: first anterior margin of the right upper lung measuring 3 mm identified on image 23 of 65, 2nd within the left upper lung measuring 3.7 mm image 35 of 65. No posterior pleural effusion. Mild bronchial wall thickening. ~Anterior mediastinum and tiffanie are without pathologic adenopathy. Few scattered subcentimeter lymph nodes. Thoracic aorta demonstrates peripheral atherosclerotic disease and mural thickening. No abnormal dilation. Cardiac silhouette not enlarged. Enlargement of the left thyroid lobe extending substernally. ~Remaining lower neck structures without gross abnormality. Upper abdominal organs were visualized/described on recent CT is abdomen examination. Osseous structures demonstrate degenerative changes. Hiatal hernia. Impression: Scattered parenchymal scarring and pleural thickening. Plain film finding represents an area pleural thickening - no spiculated lesion identified. Scattered subcentimeter nodules as described. Consider followup at sequential intervals until 2 years stability have been documented. Enlarged left thyroid lobe -consider obtaining thyroid ultrasound to better evaluate. Mild bronchial wall thickening. Hiatal hernia. ~ Electronically signed on Mar 23, 2017 4:01:20 PM CDT by: Trevon JEFFRIES
== END 2017-03-23 08:42 ==
LOC: RAD 08:40
PROVIDERS: ATTEND Nurse Practitioner Family
DX: R91.8 Other nonspecific abnormal finding of lung field (principal)
CPT/HCPCS: 71260; Q9966

== ENCOUNTER 2017-03-27 08:40 | Outpatient (CLI) | payer MEDICARE, OTHER ==
--- NOTE | 2017-03-27 11:43 | Diagnostic Imaging Report ---
ZAK KHALIL (SUPERVISORY INVESTIGATIVE SPECIALIST) - OP [facility] [address] [address] Report Submission Date: Mar 27, 2017 11:42:39 AM CDT Patient Study Name: VERENICE SEGURA Date: Mar 27, 2017 9:00:23 AM CDT Modality Type: US Gender: F Description: US THYROID SOFT TISS HEAD/NCK : [birth year] Institution: [facility] Physician: ZAK KHALIL (SUPERVISORY INVESTIGATIVE SPECIALIST) - OP Examination: Ultrasound thyroid History: Enlarged thyroid gland Comparison exams: CT dated 23 March 2017 Findings: Right thyroid lobe measures 5.2 x 2.1 x 1.6 cm. Left thyroid lobe measures 6.8 x 2.9 x 1.7 cm. Right thyroid lobe demonstrates some central nodular densities. Largest appears to measure 7 mm diameter. Within the inferior margin of the left thyroid lobe a hyperechoic lesion measuring 2.6 x 2.3 x 1.7 cm. Flow along the periphery on color analysis. Isthmus measures 2.8 mm. Impression: Enlarged left thyroid lobe with hyperechoic nodule along the inferior aspect. Consider biopsy for cytologic evaluation. Small subcentimeter right thyroid lobe nodules. Electronically signed on Mar 27, 2017 11:42:39 AM CDT by: Trevon JEFFRIES
== END 2017-03-27 08:42 ==
LOC: RAD 08:40
PROVIDERS: ATTEND Nurse Practitioner Family
DX: E04.9 Nontoxic goiter, unspecified (principal)
CPT/HCPCS: 76536